=== PATIENT | male | born 1960 | race Caucasian/White ===

== ENCOUNTER → 2019-09-14 | Outpatient (CLI) | payer OTHER ==
--- NOTE | 2019-09-14 10:06 | REP ---
Clinical: Lung screening. History smoking. Comparison: None Technique: Axial low-dose noncontrast images from the thoracic inlet to the upper abdomen using lung screening technique. Findings: The lung jarquin are well-aerated and demonstrate moderate emphysematous changes. No consolidation, significant nodule or mass lesion is appreciated. No pleural effusion/reaction or pneumothorax. Tracheobronchial tree is patent. Mediastinum demonstrates mild atherosclerotic changes of the coronary arteries without cardiomegaly. Impression: 1. Lung-RADS category I. Emphysematous changes noted. No nodule or suspicious abnormality. 2. Recommendations include annual surveillance. Electronically Signed by Humberto Velasquez MD 09/14/2019 09:58 A
== END ==
LOC: M RAD 08:51
PROVIDERS: ATTEND Family Medicine
DX: Z12.2 Encounter for screening for malignant neoplasm of respiratory organs (principal); F17.210 Nicotine dependence, cigarettes, uncomplicated

== ENCOUNTER → 2020-10-31 | Outpatient (CLI) | payer OTHER ==
--- NOTE | 2020-10-31 10:56 | REP ---
INDICATION: NICOTINE DEPENDENCE. COMPARISON: 09/14/2019. TECHNIQUE: The study is performed without IV contrast. Images are presented at lung windowing only. FINDINGS: There are no lung masses or nodules. There are no infiltrates or pleural effusions. There are small bulla scattered throughout the lung jarquin bilaterally. IMPRESSION: Category 1 low-dose lung screening chest CT. No interval change. Probability of malignancy is less than 1%. Depending on risk factors consider continued annual low-dose lung screening chest CT. <Electronically signed by Chay Webster > 10/31/20 [id number]
== END ==
LOC: M RAD 10:13
PROVIDERS: ATTEND Family Medicine
DX: F17.210 Nicotine dependence, cigarettes, uncomplicated (principal)